=== PATIENT | male | born 1990 | race Caucasian/White ===

== ENCOUNTER → 2018-08-27 | Day surgery (SDC) | payer BC ==
[~2018-08-27] MED LIST: Acetaminophen/HYDROcodone 325-5 MG Tab PO PRN; Clindamycin Phosphate in D5W 900 MG in Premix Bag 1 BAG IV SCH; Dexamethasone 4 MG/ML SDV ONE; Ertapenem 1 GM in Sodium Chloride 0.9% 100 ML IV SCH; Ketamine 500 mg/10 ML MDV ONE; Ketorolac 30 MG/ML SDV ONE; Lactated Ringers 1,000 ML IV SCH; Lactated Ringers 1,000 ML ONE; Lidocaine 1% 2 ML ONE; Lidocaine 1% 30 ML SDV ONE; Lidocaine 1%/Sod Bicarbonate in NS 8.4% 1 ML Syringe IDERM PRN; Metoclopramide 10 MG/2 ML SDV ONE; Midazolam 1 MG/ML 2 ML SDV ONE; Ondansetron 4 MG/2 ML SDV IVPUSH PRN; Ondansetron 4 MG/2 ML SDV ONE; Propofol 200 MG/20 ML SDV ONE; Rocuronium 50 MG/5 ML Vial ONE; Scopolamine 1.5 MG Transdermal Patch TOP SCH; Sodium Chloride 0.9% 10 ML Syringe FLUSH PRN; diphenhydrAMINE 50 MG/ML SDV IVPUSH PRN; fentaNYL 100 MCG/2 ML SDV IVPUSH PRN; fentaNYL 100 MCG/2 ML SDV ONE; fentaNYL 250 MCG/5 ML SDV ONE
--- NOTE | 2018-08-27 14:01 | PCM.PREANE ---
Preanesthetic Assessment - Anesthesia/Transfusion/Family Hx Anesthesia History: Prior Anesthesia Reaction Type of Anesthesia Reaction: Excessive Nausea/Vomiting (will use scopalomine patch ) Family History of Anesthesia Reaction: No Transfusion History: No Prior Transfusion(s) - Review of Systems General: No Symptoms Pulmonary: No Symptoms Cardiovascular: No Symptoms Gastrointestinal: Abdominal Pain ((R) sided, rates 3 on pain scale) Neurological: No Symptoms Other: Reports: None - Physical Assessment NPO Status Date: 08/27/18 NPO Status Time: 08:00 Pulse: 70 O2 Sat by Pulse Oximetry: 97 Respiratory Rate: 16 Blood Pressure: 127/89 Temperature: 98.4 C ASA Class: 1 Mental Status: Alert & Oriented x3 Airway Class: Mallampati = 1 Dentition: Reports: Normal Dentition Thyro-Mental Finger Breadths: 3 Mouth Opening Finger Breadths: 3 ROM/Head Extension: Full Lungs: Clear to Auscultation, Normal Respiratory Effort Cardiovascular: Regular Rate, Regular Rhythm - Allergies Allergies/Adverse Reactions: Allergies Allergy/AdvReac Type Severity Reaction Status Date / Time amoxicillin Allergy Hives Verified 08/27/18 13:50 - Acknowledgements Anesthesia Type Planned: General Anesthesia Pt an Appropriate Candidate for the Planned Anesthesia: Yes Alternatives and Risks of Anesthesia Discussed w Pt/Guardian: Yes Pt/Guardian Understands and Agrees with Anesthesia Plan: Yes PreAnesthesia Questionnaire HEENT History: Reports: None Cardiovascular History: Reports: None Respiratory History: Reports: None Gastrointestinal History: Reports: None Genitourinary History: Reports: None Musculoskeletal History: Reports: None Neurological History: Reports: None Psychiatric History: Reports: None Endocrine/Metabolic History: Reports: None Hematologic History: Reports: None Immunologic History: Reports: None Dermatologic History: Reports: None - Infectious Disease History Infectious Disease History: Reports: None - Past Surgical History Head Surgeries/Procedures: Reports: None HEENT Surgical History: Reports: None Cardiovascular Surgical History: Reports: None Respiratory Surgical History: Reports: None GI Surgical History: Reports: None Male Surgical History: Reports: None Endocrine Surgical History: Reports: None Musculoskeletal Surgical History: Reports: Shoulder Replacement (arthroscopic (L )) - SUBSTANCE USE Smoking Status *Q: Never Smoker - CURRENT (IN HOUSE) MEDS Current Meds: Current Medications Lactated Ringer's (Ringers, Lactated) 1,000 mls @ 125 mls/hr IV ASDIRECTED ILEANA Stop: 08/27/18 23:00 Clindamycin Phosphate 900 mg/ (Sodium Chloride) 106 mls @ 200 mls/hr IV ONETIME ILEANA Lidocaine/Sodium Bicarbonate (Buffered Lidocaine 1% In Ns 8.4%) 0.25 ml IDERM ONETIME PRN PRN Reason: Prior to IV Start Stop: 08/27/18 18:00 Sodium Chloride (Saline Flush) 10 ml FLUSH ASDIRECTED PRN PRN Reason: Keep Vein Open Stop: 08/27/18 20:00 Discontinued Medications Fentanyl (Sublimaze) Confirm Administered Dose 250 mcg .ROUTE .STK-MED ONE Stop: 08/27/18 13:43 Lidocaine HCl (Xylocaine-Mpf 1%) Confirm Administered Dose 2 mls @ as directed .ROUTE .STK-MED ONE Stop: 08/27/18 13:42 Lidocaine HCl (Xylocaine-Mpf 1%) Confirm Administered Dose 2 mls @ as directed .ROUTE .STK-MED ONE Stop: 08/27/18 13:42 Lidocaine HCl (Xylocaine-Mpf 1%) Confirm Administered Dose 30 ml .ROUTE .STK- MED ONE Stop: 08/27/18 13:39 Midazolam HCl (Versed 1 Mg/Ml) Confirm Administered Dose 2 mg .ROUTE .STK-MED ONE Stop: 08/27/18 13:42 Propofol (Diprivan 20 Ml) Confirm Administered Dose 200 mg .ROUTE .STK-MED ONE Stop: 08/27/18 13:41 Rocuronium Collins (Zemuron) Confirm Administered Dose 50 mg .ROUTE .STK-MED ONE Stop: 08/27/18 13:43
--- NOTE | 2018-08-27 15:31 | PCM.POSTAN ---
POST ANESTHESIA ASSESSMENT - MENTAL STATUS Mental Status: Alert, Oriented - VITAL SIGNS Pulse Rate: 84 SaO2: 98 Resp Rate: 14 Blood Pressure: 165/108 Temperature: 37.0 C - RESPIRATORY Respiratory Status: Respiratory Rate WNL, Airway Patent, O2 Saturation Stable - CARDIOVASCULAR CV Status: Elevated Blood Pressure - GASTROINTESTINAL GI Status: No Symptoms - PAIN Pain Score: 0 - POST OP HYDRATION Hydration Status: Adequate & Stable
[2018-08-27] MEDS: HYDROmorphone 0.5 MG/0.5 ML Syringe IVPUSH PRN ×2 (15:35→16:05)
--- NOTE | 2018-08-27 16:40 | PCM48HPAN ---
Post Anesthesia Note - EVALUATION WITHIN 48HRS OF ANESTHETIC Vital Signs in Normal Range: Yes Patient Participated in Evaluation: Yes Respiratory Function Stable: Yes Airway Patent: Yes Cardiovascular Function Stable: Yes Hydration Status Stable: Yes Pain Control Satisfactory: Yes Nausea and Vomiting Control Satisfactory: Yes Mental Status Recovered: Yes
--- NOTE | 2018-08-28 07:29 | HP ---
DATE OF ADMISSION: 08/27/2018 CHIEF COMPLAINT: Right lower quadrant pain. HISTORY OF PRESENT ILLNESS: Mr. Pappas is a most pleasant 28-year-old male, who has had 3 days of kind of a vague lower abdominal pain. He states it was such that he really just did not feel like eating and the pain was made worse when he was walking. He had no associated diarrhea or constipation and he actually had no history of hematuria or dysuria. He was initially seen yesterday at an outlying facility where his WBC was normal and essentially was sent home. He stated the pain continued to escalate to the point where now it is really localized in the right lower quadrant. He has never had this problem before and has no history of any abdominal problems. He subsequently had a CT scan of the abdomen and pelvis, which is consistent with an acute appendicitis which is not ruptured. PAST MEDICAL HISTORY: ALLERGIES: Amoxicillin. PAST SURGICAL HISTORY: Left shoulder. CURRENT MEDICATIONS: None SOCIAL HISTORY: Smoking negative. Alcohol socially. 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 FAMILY HISTORY: He has 1 brother, alive and well. REVIEW OF SYSTEMS: No seizures or strokes. No blurred or double vision. No thyroid, diabetes, hepatitis. No shortness of breath or cough. No palpitations. No prior abdominal pain or tenderness. No hematuria or dysuria. No history of bruising or bleeding disorders. PHYSICAL EXAMINATION: GENERAL: This is a young 28-year-old male. HEENT: Pupils are equal. HEENT: Sclerae white. NECK: Without mass. LUNGS: Clear. HEART: Rhythm is regular. ABDOMEN: There is marked tenderness with deep palpation and guarding in the right lower quadrant. EXTREMITIES: Ankles are free of edema. RADIOGRAPHIC STUDIES: CT scan report has been reviewed. ASSESSMENT: 1. Indeed, this patient has all the signs and symptoms of acute appendicitis. I clearly discussed the risks and benefits of an attempt at laparoscopic appendectomy to include, but not limited to bleeding, infection, heart attack, , injury to structures not intended, the need for even a possible open procedure, or even need for a drain. Even with these risks, he wishes to proceed and does not wish for another consult. I also explained to him that pending on what we find will be determining whether we can let him go home today or not, and then we will be able to give further instructions. 2. Status post shoulder surgery. Of note, the patient states he has not eaten since yesterday. MMODAL /[id number]
--- NOTE | 2018-08-28 07:31 | OR ---
DATE OF OPERATION: 08/27/2018 SURGEON: Karen Keene MD PREOPERATIVE DIAGNOSIS: Acute appendicitis. POSTOPERATIVE DIAGNOSIS: Acute retrocecal appendicitis. OPERATION PERFORMED: Laparoscopic appendectomy. ANESTHESIA: General with intubation. ESTIMATED BLOOD LOSS: Less than 5 mL. REPLACEMENT: Crystalloid. DRAINS: None. BRIEF HISTORY: This is a previously healthy 28-year-old male with CT scan proven acute appendicitis. I had the opportunity to discuss risks and benefits with the patient preoperatively, and he agreed to proceed. DESCRIPTION OF PROCEDURE: The patient was taken to the operating room. Time-out was performed. At this point, I did a small amount of shaving on the infraumbilical in the suprapubic area. General anesthesia was obtained with intubation. The abdomen was prepped and draped in the usual fashion, and we waited the 3 minutes for the prep to dry. 1% lidocaine was instilled in the subcutaneous tissue in the infraumbilical area. Dissection was performed to the skin and subcutaneous tissue until I identified the fascia. This was grasped between 2 sterile hemostats and elevated superiorly. A wolfgang was made in the fascia and a Veress needle was advanced for CO2 insufflation. Once this was done to my satisfaction, a 5 mm port was advanced. The camera confirmed good positioning. A 5 was advanced in the right upper quadrant and suprapubic 12 was advanced directly. At this point, I was able to dissect free and find that the appendix tip was very distended and that the base was quite normal. It actually was retrocecal and pointing towards the hepatic flexure. I was able to make a window at the base of the appendix and fired the stapling device. I then divided the mesoappendiceal vessels using multiple hemoclips. Once I freed the appendix, I was able to place it in Endobag. This was then brought out through the suprapubic 12 incision. I then irrigated with saline, could see that hemostasis was very good. The staple line was intact. I placed the omentum over the area and then irrigated out the fluid. The 12 mm port was inspected. There was no bleeding. I removed the 5 right upper quadrant one under direct vision. There was no bleeding. The camera was removed. 0-PDS was used for reapproximation of the fascia of the 12 in a continuous running fashion for 3 swipes basically and a single suture of the 0- PDS for the infraumbilical 5. Subcuticular closure was achieved. Benzoin and Steri-Strips applied. The plan will be that this patient will be discharged here today, and we will give 1 more dose of antibiotics to take at home. I would like him to follow up here on Monday, and then we will be able to give him the instructions for whether he goes back to work or not. He tolerated the procedure well. TRISTIN /[id number]
== END ==
LOC: JD.SDS 13:30
PROVIDERS: ATTEND Surgery
DX: K35.80 Unspecified acute appendicitis (principal); Z88.0 Allergy status to penicillin
CPT/HCPCS: 44970; A9270; J1100; J1170; J2001; J2250; J2405; J2704; J2765; J3010; J3490; J7120; 00840; J1885